=== PATIENT | female | born 1985 | race American Indian/Alaskan Native ===

== ENCOUNTER 2018-01-08 16:33 | Emergency (ER) | payer SELFPAY ==
[2018-01-08 16:50] VITALS: BP 120/77; PULSE 95; RESP 18; TEMP 97.7; O2SAT 100
[2018-01-08] MEDS ORDERED: Apap-Butalbital-Caffeine 325-50-40mg Tab PO STA (17:10)
[2018-01-08] MEDS ORDERED: Apap-Butalbital-Caffeine 325-50-40mg Tab ONE (17:16)
--- NOTE | 2018-01-08 17:45 | CT ---
PROCEDURE: CT scan of the brain dated 01/08/2018 HISTORY: Headache x 2weeks COMPARISON: No prior TECHNIQUE: Axial computed tomography images were obtained through the head/brain without intravenous contrast. Radiation dose: Total exam DLP = mGy-cm. This CT exam was performed using one or more of the following dose reduction techniques: Automated exposure control, adjustment of the mA and/or kV according to patient size, and/or use of iterative reconstruction technique. FINDINGS: HEMORRHAGE: No acute parenchymal, subarachnoid or extra-axial hemorrhage. BRAIN: No evidence of large acute infarct. No obvious parenchymal nor extra-axial mass or collection seen on this noncontrast study. Ventricular and sulcal size are within range of normal for this patient's stated age. VENTRICLES: No obstructive theUnremarkable. No hydrocephalus. CALVARIUM: No acute calvarial fractures. PARANASAL SINUSES: Unremarkable as visualized. No significant inflammatory changes. MASTOID AIR CELLS: Unremarkable as visualized. No inflammatory changes. OTHER FINDINGS: None. IMPRESSION: No acute intracranial hemorrhage.
--- NOTE | 2018-01-08 17:52 | C.PDOC ---
History Of Present Illness 32 year old female presents to ED with complaints of left sided headache for 2 weeks. She reports feeling pressure to left side of head with occasional photophobia. She has been taking Advil with temporary relief. Last night she reports nausea. She denies any fever, neck pain, injury, vision changes, dizziness. She is unsure of status stating last menses was 3 weeks ago. She denies this is worst headache of her life. Time Seen by Provider: 01/08/18 16:52 Chief Complaint (Nursing): Headache History Per: Patient History/Exam Limitations: no limitations Onset/Duration Of Symptoms: Days Current Symptoms Are (Timing): Still Present Quality: Pressure Associated Symptoms: Photophobia Past Medical History Reviewed: Historical Data, Nursing Documentation, Vital Signs Vital Signs: Last Vital Signs Temp 97.7 F 01/08/18 16:49 Pulse 95 H 01/08/18 16:49 Resp 18 01/08/18 16:49 BP 120/77 01/08/18 16:49 Pulse Ox 100 01/08/18 18:46 - Medical History PMH: No Chronic Diseases Surgical History: No Surg Hx Family History: States: No Known Family Hx - Social History Hx Tobacco Use: No Hx Alcohol Use: No Hx Substance Use: No - Immunization History Hx Tetanus Toxoid Vaccination: No Hx Influenza Vaccination: No Hx Pneumococcal Vaccination: No Review Of Systems Constitutional: Negative for: Fever, Chills Eyes: Negative for: Vision Change ENT: Negative for: Ear Pain, Throat Pain Cardiovascular: Negative for: Chest Pain, Palpitations Respiratory: Negative for: Cough, Shortness of Breath Gastrointestinal: Negative for: Nausea, Vomiting, Abdominal Pain, Diarrhea Musculoskeletal: Negative for: Neck Pain, Back Pain Neurological: Positive for: Headache. Negative for: Weakness, Numbness, Dizziness Physical Exam - Physical Exam Appears: Non-toxic, No Acute Distress Skin: Warm, Dry, No Rash Head: Atraumatic, Normacephalic Eye(s): bilateral: Normal Inspection (No nystagmus), PERRL, EOMI Oral Mucosa: Moist Neck: Normal ROM, Supple Cardiovascular: Rhythm Regular Respiratory: Normal Breath Sounds, No Rales, No Rhonchi, No Wheezing Gastrointestinal/Abdominal: Soft, No Tenderness, No Guarding, No Rebound Extremity: Normal ROM, Capillary Refill (<2 seconds), No Deformity, No Swelling Neurological/Psych: Oriented x3, Normal Speech, Normal Cranial Nerves, No Cerebellar Signs, Normal Motor, Normal Sensation Gait: Steady ED Course And Treatment O2 Sat by Pulse Oximetry: 100 (RA) Pulse Ox Interpretation: Normal Medical Decision Making Medical Decision Making: Impression: Headache Plan: * CT head * Fioricet Progress: 1748 CT shows no intracranial abnormality 1751 Patient re-evaluated and reports feeling better, headache has improved. She has no fever, nuchal rigidity or neuro deficits. She denies any dizziness or vision changes. I explained Ct results and provide copy of report. She feels comfortable going home and will be discharged. Recommend analgesics and to follow up with PCP or neurology for further evaluation. Disposition Counseled Patient/Family Regarding: Diagnosis, Need For Followup, Rx Given - Disposition Referrals: Maria De Jesus Mcfarland [Medical Doctor] - Taylor Williamson MD [Staff Provider] - Disposition: HOME/ ROUTINE Disposition Time: 17:56 Condition: IMPROVED Additional Instructions: Your head CT was normal Take pain medicine as needed. Drink fluids and rest Follow up with your doctor or neurologist for further evaluation and care Prescriptions: Acetaminophen/Butalbital/Caf [Fioricet] 1 tab PO TID PRN #20 tab PRN Reason: Headache Instructions: Tension Headache Forms: [employer] (Ukrainian) - POA Present On Arrival: None - Clinical Impression Clinical Impression: Tension headache - PA / BODY BUMPER / Resident Statement MD/DO has reviewed & agrees with the documentation as recorded. - Scribe Statement The provider has reviewed the documentation as recorded by the Geovannaibrashmi Desai All medical record entries made by the Geovannaibrashmi were at my direction and personally dictated by me. I have reviewed the chart and agree that the record accurately reflects my personal performance of the history, physical exam, medical decision making, and the department course for this patient. I have also personally directed, reviewed, and agree with the discharge instructions and disposition.
== END 2018-01-08 18:02 | disposition home or self-care (01) ==
LOC: C.ER 16:33
DX: G44.209 Tension-type headache, unspecified, not intractable (principal)

== ENCOUNTER 2018-05-20 21:23 | Emergency (ER) | payer SELFPAY ==
--- NOTE | 2018-05-20 22:11 | C.PDOC ---
History Of Present Illness 32 y/o F c PMHx fibroids p/w vaginal bleeding x 4 days. Reports about 6 pads per day, complains of sharp pain in the L lower pelvic area with back pain. Denies fever, chills, chest pain, palpitaitons, dyspnea, nausea, vomiting, dysuria. Time Seen by Provider: 05/20/18 21:45 Chief Complaint (Nursing): Female Genitourinary History Per: Patient History/Exam Limitations: no limitations Onset/Duration Of Symptoms: Days (4) Current Symptoms Are (Timing): Still Present Recent travel outside of the [place]: No Additional History Per: Patient Past Medical History Reviewed: Historical Data, Nursing Documentation, Vital Signs Vital Signs: Last Vital Signs Temp 98 F 05/20/18 21:26 Pulse 75 05/20/18 21:26 Resp 14 05/20/18 21:26 BP 107/72 05/20/18 21:26 Pulse Ox 98 05/20/18 22:17 - Medical History PMH: No Chronic Diseases Surgical History: No Surg Hx Family History: States: Unknown Family Hx - Social History Hx Tobacco Use: No Hx Alcohol Use: No Hx Substance Use: No - Immunization History Hx Tetanus Toxoid Vaccination: No Hx Influenza Vaccination: No Hx Pneumococcal Vaccination: No Review Of Systems Except As Marked, All Systems Reviewed And Found Negative. Constitutional: Negative for: Fever Cardiovascular: Negative for: Chest Pain Physical Exam - Physical Exam Additional Physical Exam Comments: Constitutional: No acute distress. Head: Normocephalic. Atraumatic. Eyes: PERRL. ENT: Moist mucous membranes. Neck: Supple. Cardiovascular: Regular rate. Radial pulse 2+ bilaterally. Chest: No tenderness. Respiratory: Clear to auscultation bilaterally. GI: Soft. Nondistended. L pelvic pain. Back: No CVA tenderness. Musculoskeletal: No tenderness or swelling of extremities. Skin: No rash. Neurologic: Alert, no focal deficit. ED Course And Treatment - Laboratory Results Result Diagrams: 05/20/18 22:20 05/20/18 22:20 O2 Sat by Pulse Oximetry: 98 (ON RA) Pulse Ox Interpretation: Normal Medical Decision Making Medical Decision Making: Hemodynamically stable. Will evaluate Hb/Hct. US. Acetaminophen for pain. Signed out to ED night team pending US. Disposition - Disposition Disposition Time: 23:24 Condition: STABLE Forms: [employer] ([place]) - Clinical Impression Clinical Impression: Vaginal bleeding - Scribe Statement The provider has reviewed the documentation as recorded by the Scribe Pratik Paul All medical record entries made by the Scribe were at my direction and personally dictated by me. I have reviewed the chart and agree that the record accurately reflects my personal performance of the history, physical exam, medical decision making, and the department course for this patient. I have also personally directed, reviewed, and agree with the discharge instructions and disposition.
[2018-05-20 22:30] LABS: BASO % 0.3 % (0.0-2.0); EOS # 0.3 K/uL (0.0-0.7); EOS % 3.5 % (0.0-4.0); HEMOGLOBIN 9.2 g/dL (11.0-16.0); LYMPH # 2.3 K/uL (1.0-4.3); LYMPH % 27.4 % (20.0-40.0); MEAN CELL VOLUME 67.4 fL (81.0-99.0); MEAN CORPUSCULAR HEMOGLOBIN 21.4 pg (27.0-31.0); MEAN CORPUSCULAR HGB CONC 31.7 g/dL (33.0-37.0); MEAN PLATELET VOLUME 7.5 fL (7.2-11.7); MONO # 0.9 K/uL (0.0-0.8); MONO % 10.3 % (0.0-10.0); NEUT % 58.5 % (50.0-75.0); NRBC % 0.1 % (0.0-2.0); RBC 4.3 Mil/uL (3.80-5.20); RED CELL DISTRIBUTION WIDTH 16.7 % (11.5-14.5); WHITE BLOOD COUNT 8.5 K/uL (4.8-10.8)
[2018-05-20 22:35] LABS: SQUAMOUS EPITHIAL 4 /hpf (0-5); URINE BACTERIA RARE (<OCC); URINE BILIRUBIN NEGATIVE (NEGATIVE); URINE BLOOD 3+ (NEGATIVE); URINE CLARITY Hazy (Clear); URINE COLOR Yellow (YELLOW); URINE GLUCOSE (UA) 1+ mg/dL (Normal); URINE LEUKOCYTE ESTERASE NEG Leu/uL (Negative); URINE PROTEIN 1+ mg/dL (NEGATIVE); URINE UROBILINOGEN NORMAL mg/dL (0.2-1.0)
[2018-05-20 22:47] LABS: ALB/GLOB RATIO 1.4 (1.0-2.1); ALBUMIN 4.3 g/dL (3.5-5.0); ALT/SGPT 21 U/L (9-52); AST/SGOT 20 U/L (14-36); BLOOD UREA NITROGEN 11 mg/dL (7-17); CALCIUM 9.3 mg/dl (8.6-10.4); GFR AFRICAN-AMERICAN > 60; GFR NON-AFRICAN AMERICAN > 60
[2018-05-21 00:54] VITALS: BP 113/66; PULSE 69; RESP 18; TEMP 98.5; O2SAT 100
--- NOTE | 2018-05-21 10:29 | US ---
Pelvic ultrasound History: Pelvic pain. Bleeding. Comparison: Pelvic ultrasound dated 06/29/2018 Technique: Real-time sonography was performed through the pelvis utilizing transabdominal and transvaginal techniques. Findings: Uterus: 8.0 x 5.2 x 6.4 centimeters. Heterogeneous echotexture. Retroverted. Multiple heterogeneous lesions suggestive for fibroids: Anterior fundal intramural region measuring 1.7 x 1.6 x 2.1 centimeters. Posterior fundal intramural region measuring 1.9 x 1.7 x 2.1 centimeters. Subserosal fundal region which appears partially pedunculated measuring 1.3 x 1.4 x 1.7 centimeters. Endometrium measures 7 millimeters, within normal limits. No free fluid in pelvic cul-de-sac. Right ovary: 3.0 x 1.9 x 2.9 centimeters. Normal flow. Heterogeneous complex cyst measuring 2.1 x 1.6 x 1.9 centimeters. Left ovary: 2.6 x 1.4 x 2.8 centimeters. Normal flow. Heterogeneous complex cyst/follicle measuring 8 x 7 x 8 millimeters. Impression: 1. 2.1 centimeter complex right ovarian cyst. 4-6 week interval followup may be helpful if clinically indicated. Additional smaller 8 millimeter complex cyst at the level of the left adnexa. Again 4-6 week interval followup may be helpful if clinically indicated. 2. Fibroid uterus. These findings were preliminarily reported at 12:32 a.m. on 05/21/[address] Bill Can from [facility].
== END 2018-05-21 00:55 | disposition home or self-care (01) ==
LOC: C.ER 21:23
DX: D25.9 Leiomyoma of uterus, unspecified (principal); N83.201 Unspecified ovarian cyst, right side; N93.9 Abnormal uterine and vaginal bleeding, unspecified

== ENCOUNTER 2018-10-31 13:10 | Outpatient (CLI) | payer SELFPAY, OTHER | END 2018-10-31 13:11 | disposition home or self-care (01) | LOC: C.USIC 13:10 | DX: D25.9 Leiomyoma of uterus, unspecified (principal) ==